=== PATIENT | male | born 1975 | race Caucasian/White ===

== ENCOUNTER → 2019-05-01 | Outpatient (CLI) | payer BC ==
--- NOTE | 2019-05-01 12:06 | P.STRESS ---
- Stress Test Note Stress Test Results/Findings: Exam Performed: stress test Exam Date: 05/01/19 Reason for Exam: PHYSICAL Height: 5 ft 11 in Weight: 97.522 kg Protocol: TERRY Stage: IV Duration of Exercise: 10:00 Resting Heart Rate: 82 Resting Blood Pressure: 127/87 Maximum Achieved Heart Rate: 185 Maximum Achieved Blood Pressure: 196/89 85% PMHR: 150 100% PMHR: 177 METS: 11.7 Technologist Comment: Stress Test Results/Findings: This is a 43-year-old gentleman with family history of ischemic heart disease being evaluated for physicals. Patient denied any chest pain or shortness of breath. Stress data: Baseline EKG showed a sinus rhythm with normal CO interval and QRS duration with the TV and was in inferior leads. Blood pressure at rest is 127/87 with pulse rate of 82. Patient walked on the Terry protocol for 10 minutes achieving a maximum heart rate of 184 with a blood pressure 181/85. EKGs taken during and after exercise did not reveal any significant changes from baseline to suggest ischemia. Patient did not experience any chest pain. Final impression: #1. Negative stress test #2. Good x-rays capacity #3. No arrhythmias are noted
--- NOTE | 2019-05-01 13:33 | ECHOF ---
Referral Reason:Z82.49 family hx of cardiovascular disease MEASUREMENTS -------- HEIGHT: 185.4 cm WEIGHT: 111.1 kg BP: 127/87 RVIDd: 3.7 cm (< 3.3) IVSd: 1.5 cm (0.6 - 1.1) LVIDd: 3.9 cm (3.9 - 5.3) LVPWd: 1.4 cm (0.6 - 1.1) IVSs: 2.0 cm LVIDs: 2.7 cm LVPWs: 1.8 cm LAESV Index (A-L): 17.00 ml/m Ao Diam: 3.5 cm (2.0 - 3.7) AV Cusp: 2.5 cm (1.5 - 2.6) LA Diam: 3.6 cm (2.7 - 3.8) MV E Sammy: 0.41 m/s MV DecT: 103 ms MV A Sammy: 0.69 m/s MV E/A Ratio: 0.60 RAP: 5.00 mmHg RVSP: 11.29 mmHg FINDINGS -------- Sinus rhythm. This was a technically adequate study. The left ventricular size is normal. There is moderate concentric left ventricular hypertrophy. T here is normal global left ventricular contractility. Overall left ventricular systolic function is normal with, an EF between 55 - 60 %. The diastolic filling pattern is normal for the age of the p atient 6.19. The right ventricle is mildly enlarged. Normal LA size by volume 22+/-6 ml/m2. The right atrial size is normal. Interatrial and interventricular septum intact. The aortic valve is trileaflet and appears structurally normal. There is no evidence of aortic regu rgitation. There is no evidence of aortic stenosis. No mitral regurgitation. Mild tricuspid regurgitation present. There is no evidence of pulmonary hypertension. The right v entricular systolic pressure, as measured by Doppler, is 11.29mmHg. There is no pulmonic regurgitation present. The aortic root size is normal. IVC Not well visulized. There is no pericardial effusion. CONCLUSIONS -------- 1. Sinus rhythm. 2. This was a technically adequate study. 3. The left ventricular size is normal. 4. There is moderate concentric left ventricular hypertrophy. 5. There is normal global left ventricular contractility. 6. Overall left ventricular systolic function is normal with, an EF between 55 - 60 %. 7. The diastolic filling pattern is normal for the age of the patient 6.19 8. The right ventricle is mildly enlarged. 9. Normal LA size by volume 22+/-6 ml/m2. 10. The right atrial size is normal. 11. Interatrial and interventricular septum intact. 12. The aortic valve is trileaflet and appears structurally normal. 13. There is no evidence of aortic regurgitation. 14. There is no evidence of aortic stenosis. 15. No mitral regurgitation. 16. Mild tricuspid regurgitation present. 17. There is no evidence of pulmonary hypertension. 18. The right ventricular systolic pressure, as measured by Doppler, is 11.29mmHg. 19. There is no pulmonic regurgitation present. 20. The aortic root size is normal. 21. IVC Not well visulized. 22. There is no pericardial effusion. [employer] OPERATOR: Afsaneh Burns RDCS
--- NOTE | 2019-05-02 13:12 | EST ---
Stress Test Results/Findings: Exam Performed: stress test Exam Date: 05/01/19 Reason for Exam: PHYSICAL Height: 5 ft 11 in Weight: 97.522 kg Protocol: TERRY Stage: IV Duration of Exercise: 10:00 Resting Heart Rate: 82 Resting Blood Pressure: 127/87 Maximum Achieved Heart Rate: 185 Maximum Achieved Blood Pressure: 196/89 85% PMHR: 150 100% PMHR: 177 METS: 11.7 Technologist Comment: Stress Test Results/Findings: This is a 43-year-old gentleman with family history of ischemic heart disease being evaluated for physicals. Patient denied any chest pain or shortness of breath. Stress data: Baseline EKG showed a sinus rhythm with normal NC interval and QRS duration with the TV and was in inferior leads. Blood pressure at rest is 127/87 with pulse rate of 82. Patient walked on the Terry protocol for 10 minutes achieving a maximum heart rate of 184 with a blood pressure 181/85. EKGs taken during and after exercise did not reveal any significant changes from baseline to suggest ischemia. Patient did not experience any chest pain. Final impression: #1. Negative stress test #2. Good x-rays capacity #3. No arrhythmias are noted MTDD
== END | disposition home or self-care (01) ==
LOC: RADNMMAIN 10:23
PROVIDERS: ATTEND Physician Assistant
DX: Z13.6 Encounter for screening for cardiovascular disorders (principal); I07.1 Rheumatic tricuspid insufficiency; Z82.49 Family history of ischemic heart disease and other diseases of the circulatory system
CPT/HCPCS: 93017; 93306

== ENCOUNTER 2019-12-05 00:39 | Emergency (ER) | payer BC ==
[2019-12-05 00:55] VITALS: BP 155/92; PULSE 84; RESP 18; TEMP 98.5
[2019-12-05 01:33] LABS: Appearance,Urine Cloudy (Clear); Bacteria,Urine Occasional /hpf; Bilirubin,Urine Negative (Negative); Blood,Urine Moderate (Negative); Budding Yeast,Urine Many /hpf; Color,Urine Light Yellow; Glucose,Urine (UA) Negative (Negative); Ketones,Urine Negative (Negative); Leukocyte Esterase,Urine Large (Negative); Mucus,Urine Rare /hpf; Nitrite,Urine Negative (Negative); PH, Urine 6.5 (5.0-8.0); Protein,Urine 1+ (Negative); RBC,Urine >182 /hpf (0-5); Specific Gravity,Urine 1.014 (1.001-1.035); Urobilinogen,Urine <2.0 mg/dL (<2.0); WBC,Urine >182 /hpf (0-5)
[2019-12-05] MEDS ORDERED: SULFAMETH-TMP DS STARTER PACK 2 TAB BTL PO STA (01:41)
--- NOTE | 2019-12-05 01:42 | ED ---
Male Urogenital HPI - General Chief complaint: Urogenital Stated complaint: urogenital Time Seen by Provider: 12/05/19 01:18 Source: patient Mode of arrival: ambulatory Limitations: no limitations - History of Present Illness Initial comments: 43-year-old male patient presents to the emergency department today for evaluation of dysuria and urinary frequency. Patient states that this is been going on for the last 2-3 days. States today he did start to have some vague pain to the bilateral flanks. He denies any hematuria. Denies any drainage from the penis. Denies fever, chills, nausea, or vomiting. Denies history of urinary tract infection. He denies participation in anal sexual intercourse. He does admit to instrumentation of his urethra on occasion. Denies painful bowel movements. Denies concern for sexually transmitted infections. Patient denies any recent rash, cough, shortness of breath, chest pain, abdominal pain, diarrhea, constipation, back pain, numbness, tingling, dizziness, weakness, headache, visual changes, or any other complaints. - Related Data Previous Rx's Medication Instructions Recorded Sulfamethoxazole/Trimethoprim 1 each PO BID #20 tablet 12/05/19 [Bactrim DS 800-160 mg] Allergies Allergy/AdvReac Type Severity Reaction Status Date / Time Penicillins Allergy Rash/Hives Verified 12/05/19 00:55 Review of Systems ROS Statement: Those systems with pertinent positive or pertinent negative responses have been documented in the HPI. ROS Other: All systems not noted in ROS Statement are negative. Past Medical History Past Medical History: No Reported History History of Any Multi-Drug Resistant Organisms: None Reported Past Surgical History: No Surgical Hx Reported Past Psychological History: No Psychological Hx Reported Smoking Status: Never smoker Past Alcohol Use History: Occasional Past Drug Use History: None Reported General Exam Limitations: no limitations General appearance: alert, in no apparent distress, other (This is a well- developed, well-nourished adult male patient in no acute distress. Vital signs upon presentation are temperature 98.5F, pulse 84, respirations 18, blood pre ssure 155/92, pulse ox 98% on room air.) Eye exam: Present: normal appearance, PERRL, EOMI. Absent: scleral icterus, conjunctival injection, periorbital swelling Respiratory exam: Present: normal lung sounds bilaterally. Absent: respiratory distress, wheezes, rales, rhonchi, stridor Cardiovascular Exam: Present: regular rate, normal rhythm, normal heart sounds. Absent: systolic murmur, diastolic murmur, rubs, gallop, clicks GI/Abdominal exam: Present: soft, normal bowel sounds. Absent: distended, tenderness, guarding, rebound, rigid Back exam: Absent: CVA tenderness (R), CVA tenderness (L) Neurological exam: Present: alert, oriented X3, CN II-XII intact Psychiatric exam: Present: normal affect, normal mood Skin exam: Present: warm, dry, intact, normal color. Absent: rash Course Vital Signs 12/05/19 00:50 Temperature 98.5 F Pulse Rate 84 Respiratory 18 Rate Blood Pressure 155/92 O2 Sat by Pulse 98 Oximetry Medical Decision Making - Medical Decision Making 43-year-old male patient presented to the emergency department today for evaluation of urinary frequency and dysuria. Physical examination revealed no CVA tenderness, no abdominal tenderness. He denied concern for sexually transmitted infections. Denied drainage from the penis. He did admit to recreational instrumentation of the urethra. Urinalysis did show evidence for infection with greater than 182 red and white cells. This has been sent for culture. We also sent urine for gonorrhea and Chlamydia testing. He'll be started on Bactrim here in the department. We did discuss increasing fluids and completing prescription in full. Instructed to follow-up with his primary care physician and urology for further evaluation as soon as possible. Return parameters were discussed in detail. He verbalizes understanding and agrees with this plan. - Lab Data Lab Results 12/05/19 Range/Units 01:16 Urine Color Light Yellow Urine Appearance Cloudy (Clear) Urine pH 6.5 (5.0-8.0) Ur Specific [place] 1.014 (1.001-1.035) Urine Protein 1+ H (Negative) Urine Glucose (UA) Negative (Negative) Urine Ketones Negative (Negative) Urine Blood Moderate H (Negative) Urine Nitrite Negative (Negative) Urine Bilirubin Negative (Negative) Urine Urobilinogen <2.0 (<2.0) mg/dL Ur Leukocyte Esterase Large H (Negative) Urine RBC >182 H (0-5) /hpf Urine WBC >182 H (0-5) /hpf Urine WBC Clumps Many H (None) /hpf Urine Bacteria Occasional H (None) /hpf Urine Mucus Rare H (None) /hpf Urine Yeast (Budding) Many H (None) /hpf Disposition Clinical Impression: Urinary tract infection Disposition: HOME SELF-CARE Condition: Good Instructions (If sedation given, give patient instructions): Urinary Tract Infection in Men (ED) Additional Instructions: Increase fluids. Take antibiotic prescription until complete. Follow-up with urologist for further evaluation as needed. Follow-up through primary care physician for recheck in 1-2 days. Return to the emergency department immediately for any new, worsening, or concerning symptoms. Prescriptions: Sulfamethoxazole/Trimethoprim [Bactrim DS 800-160 mg] 1 each PO BID #20 tablet Is patient prescribed a controlled substance at d/c from ED?: No Referrals: Norm Zuniga MD [Primary Care Provider] - 1-2 days Bert Stiles MD [STAFF PHYSICIAN] - 1-2 days Time of Disposition: 01:42
[2019-12-07 08:48] LABS: C. trachomatis,PCR Negative (Neg,Equiv); Chlamydia trachomatis Source Urine; N. gonorrhoeae,PCR Negative (Neg,Equiv); Neisseria Source Urine
== END 2019-12-05 01:52 | disposition home or self-care (01) ==
LOC: EC 00:39
DX: N39.0 Urinary tract infection, site not specified (principal); Z88.0 Allergy status to penicillin
CPT/HCPCS: 81001; 87086; 87491; 87591; 99283